=== PATIENT | male | born 1975 | race Caucasian/White ===

== ENCOUNTER 2018-03-14 08:40 | Emergency (ER) | payer SELFPAY ==
[~2018-03-14] VITALS: Ht 162.6 cm; Wt 53.5 kg
[2018-03-14 08:46] VITALS: BP 147/87
[2018-03-14] MEDS ORDERED: PEN-VEE K,VEET500 MG PO (09:09)
[2018-03-14] MEDS ORDERED: ULTRAM50 MG PO (09:09)
== END 2018-03-14 09:25 | disposition home or self-care (01) ==
LOC: EME 08:40
DX: K08.89 Other specified disorders of teeth and supporting structures (principal); Z88.2 Allergy status to sulfonamides
CPT/HCPCS: 99281; 99283